=== PATIENT | female | born 1950 | race Caucasian/White ===

== ENCOUNTER 2018-12-21 11:41 | Emergency (ER) | payer MEDICARE, OTHER ==
[2018-12-21 11:50] VITALS: BP 136/82
[2018-12-21] MEDS ORDERED: DIPH/PERTUSS(ACELL)/TETANUS VAC/PF 0.5 ML SYR (>=10YO) IM ONE (11:55)
--- NOTE | 2018-12-21 11:58 | ER Document Report ---
ED Medical Screen (RME) - General Chief Complaint: Laceration Stated Complaint: HEAD INJURY Time Seen by Provider: 12/21/18 11:52 TRAVEL OUTSIDE OF THE [place] IN LAST 30 DAYS: No - HPI Notes: 12/21/18 11:55 Patient is a 68-year-old female with no significant past medical history presents emergency department complaining of laceration to her forehead after walking into a glass door prior to arrival. Patient did not have any loss of consciousness or nausea/vomiting. Patient states that she has felt well since then. She has no other concerns or complaints. Denies any headache, fever, head injury, neck pain, changes in vision/speech/mentation/hearing, URI, sore throat, chest pain, palpitations, syncope, cough, shortness of breath, wheeze, dyspnea, abdominal pain, nausea/vomiting/diarrhea, urinary retention, dysuria, hematuria, loss of control of bowel or bladder, numbness/tingling, saddle anesthesia, muscle paralysis/weakness, or rash. I have treated and performed a rapid initial assessment of this patient. A comprehensive ED assessment and evaluation of the patient, analysis of test results and completion of medical decision making process will be conducted by additional ED providers. PHYSICAL EXAMINATION: GENERAL: Well-appearing, well-nourished and in no acute distress. A&Ox4. Answers questions appropriately. HEAD: + superficial 2.5cm narrow laceration noted running vertically near the mid forehead. No hematoma/step-off. No harrison sign EYES: Pupils equal round and reactive to light, extraocular movements intact, sclera anicteric, conjunctiva are normal. No raccoon eyes/entrapment ENT: EAC clear b/l. TM's intact b/l without erythema, fluid, or perforation. Nares patent and without discharge. oropharynx clear without exudates. No tonsilar hypertrophy or erythema. Moist mucous membranes. No sinus tenderness. No hemotympanum/CSF discharge. NECK: Normal range of motion, supple without lymphadenopathy. No rigidity. No midline tenderness. Musculoskeletal: Ext's b/l: FROM to passive/active. Strength 5+/5. No deficits noted. NEUROLOGICAL: NIH 0. GCS 15. Cranial nerves grossly intact. Normal speech, normal gait. Normal sensory, motor exams. PSYCH: Normal mood, normal affect. SKIN: see above. - Related Data Allergies/Adverse Reactions: cefazolin [From Ancef] Allergy (Verified 12/21/18 11:41) erythromycin base Allergy (Verified 12/21/18 11:41) propoxyphene [From Darvon] Allergy (Verified 12/21/18 11:41) Physical Exam - Vital signs Vitals: Temp Pulse Resp BP Pulse Ox 99.1 F 88 18 136/82 H 98 12/21/18 11:50 12/21/18 11:50 12/21/18 11:50 12/21/18 11:50 12/21/18 11:50 Course - Vital Signs Vital signs: Temp Pulse Resp BP Pulse Ox 99.1 F 88 18 136/82 H 98 12/21/18 11:50 12/21/18 11:50 12/21/18 11:50 12/21/18 11:50 12/21/18 11:50
--- NOTE | 2018-12-21 12:26 | ER Document Report ---
ED Wound - General Chief Complaint: Laceration Stated Complaint: HEAD INJURY Time Seen by Provider: 12/21/18 11:52 Mode of Arrival: Ambulatory Information source: Patient Notes: Patient is a 68-year-old female presenting to the emergency department with complaints of laceration to her forehead. Patient reports just prior to arrival she walked straight into a sliding glass door that she thought was all the way open however it was not. She struck her head on this full force. She denies any loss of consciousness or nausea or vomiting. She reports she is unsure when her last tetanus shot was. TRAVEL OUTSIDE OF THE [place] IN LAST 30 DAYS: No - Related Data Allergies/Adverse Reactions: cefazolin [From Ancef] Allergy (Verified 12/21/18 11:41) erythromycin base Allergy (Verified 12/21/18 11:41) propoxyphene [From Darvon] Allergy (Verified 12/21/18 11:41) Past Medical History - Social History Smoking Status: Never Smoker Frequency of alcohol use: None Drug Abuse: None Family History: Reviewed & Not Pertinent Patient has suicidal ideation: No Patient has homicidal ideation: No - Past Medical History Cardiac Medical History: Reports: Hx Hypercholesterolemia Renal/ Medical History: Denies: Hx Peritoneal Dialysis Psychiatric Medical History: Reports: Hx Depression Past Surgical History: Reports: Hx Cholecystectomy, Hx Hysterectomy, Hx Orthopedic Surgery - Immunizations Hx Diphtheria, Pertussis, Tetanus Vaccination: No Review of Systems - Review of Systems Constitutional: No symptoms reported EENT: No symptoms reported Cardiovascular: No symptoms reported Respiratory: No symptoms reported Gastrointestinal: No symptoms reported Genitourinary: No symptoms reported Female Genitourinary: No symptoms reported Musculoskeletal: No symptoms reported Skin: See HPI Hematologic/Lymphatic: No symptoms reported Neurological/Psychological: No symptoms reported Physical Exam - Vital signs Vitals: Temp Pulse Resp BP Pulse Ox 99.1 F 88 18 136/82 H 98 12/21/18 11:50 12/21/18 11:50 12/21/18 11:50 12/21/18 11:50 12/21/18 11:50 - Notes Notes: PHYSICAL EXAMINATION: GENERAL: Well-appearing, well-nourished and in no acute distress. HEAD: Atraumatic, normocephalic. EYES: Pupils equal round and reactive to light, extraocular movements intact, conjunctiva are normal. ENT: Nares patent, oropharynx clear without exudates. Moist mucous membranes. NECK: Normal range of motion, supple without lymphadenopathy LUNGS: Breath sounds clear to auscultation bilaterally and equal. No wheezes rales or rhonchi. HEART: Regular rate and rhythm without murmurs ABDOMEN: Soft, nontender, nondistended abdomen. No guarding, no rebound. No masses appreciated. Female : deferred Musculoskeletal: Normal range of motion, no pitting or edema. No cyanosis. NEUROLOGICAL: Cranial nerves grossly intact. Normal speech, normal gait. Normal sensory, motor exams PSYCH: Normal mood, normal affect. SKIN: Warm, Dry, superficial 2.5cm narrow laceration noted running vertically near the mid forehead. Course - Re-evaluation Re-evalutation: Tdap was updated. Patient's laceration was repaired under sterile technique. Patient tolerated well. See procedure note. - Vital Signs Vital signs: Temp Pulse Resp BP Pulse Ox 99.1 F 88 18 136/82 H 98 12/21/18 11:50 12/21/18 11:50 12/21/18 11:50 12/21/18 11:50 12/21/18 11:50 Procedures - Laceration/Wound Repair Forehead Wound length (cm): 2.5 Wound's Depth, Shape: Superficial Laceration pre-procedure: Sterile PPE donned Anesthetic type: 1% Lidocaine Wound explored: Clean Wound Debrided: Minimal Wound Repaired With: Sutures Suture Size/Type: 6:0 Number of Sutures: 6 Post-procedure wound care: Sterile dressing applied Post-procedure NV exam normal: Yes Complications: No Discharge - Discharge Clinical Impression: Facial laceration Qualifiers: Encounter type: initial encounter Qualified Code(s): S01.81XA - Laceration without foreign body of other part of head, initial encounter Condition: Stable Disposition: HOME, SELF-CARE Additional Instructions: Laceration Care Your laceration has been sutured to keep the skin edges aligned during healing. The time of suture removal depends on the nature and location of your cut. Please follow the care instructions the doctor has outlined for you and return for further care, according to the schedule you've been given. Keep the wound and dressing clean. Unless you were told otherwise, you may shower daily, blotting the wound dry with a clean, unused towel. At other times, If the dressing gets wet or blood soaked, remove it and blot the wound dry, then reapply a new dressing. Unless you were instructed otherwise, dress ings should be changed at least daily. If any signs of infection occur (swelling, redness, increasing tenderness, red streaks, tender lumps in the armpit or groin above the laceration, or fever), see the doctor immediately. Please return to the emergency department or your primary care provider in 3-5 days for suture removal. Please return earlier if you develop any signs of infection such as increased redness, swelling, foul-smelling drainage or fever.
[2018-12-21] MEDS ORDERED: LIDOCAINE 1% INJ-PF (10 MG/ML) 30 ML SDV INJ ONE (12:33)
== END 2018-12-21 14:08 | disposition home or self-care (01) ==
LOC: ER 11:41
DX: S01.81XA Laceration without foreign body of other part of head, initial encounter (principal); W22.8XXA Striking against or struck by other objects, initial encounter; Z23 Encounter for immunization; Z88.1 Allergy status to other antibiotic agents; Z88.5 Allergy status to narcotic agent
CPT/HCPCS: 99282; 90471; 90715; 12011; J3490